=== PATIENT | female | born 1970 | race Caucasian/White ===

== ENCOUNTER 2018-06-20 09:38 | Emergency (ER) | payer SELFPAY ==
[2018-06-20 10:27] VITALS: BP 118/62
--- NOTE | 2018-06-20 11:40 | UC ---
UC General HPI - HPI Summary HPI Summary: L ear pain x 1 month and now has some drainage. - History of Current Complaint Chief Complaint: UCEar Stated Complaint: LT EAR PAIN, CONGESTION Time Seen by Provider: 06/20/18 11:32 Hx Obtained From: Patient Hx Last Menstrual Period: not in years due to anemia Onset/Duration: Gradual Onset Timing: Constant Pain Intensity: 5 Associated Signs & Symptoms: Negative: Fever, Headache - Allergy/Home Medications Allergies/Adverse Reactions: Allergies Allergy/AdvReac Type Severity Reaction Status Date / Time Penicillins AdvReac Vomiting Verified 06/20/18 10:24 PMH/Surg Hx/FS Hx/Imm Hx - Additional Past Medical History Additional PMH: chronic anemia - Surgical History Surgical History: Yes Surgery Procedure, Year, and Place: TUBAL - Family History Known Family History: Positive: Non-Contributory - Social History Occupation: Employed Full-time Alcohol Use: Occasionally Substance Use Type: None Smoking Status (MU): Heavy Every Day Tobacco Smoker Type: Cigarettes Amount Used/How Often: 1/2 ppd Length of Time of Smoking/Using Tobacco: 20 + yrs Have You Smoked in the Last Year: Yes - Immunization History Vaccination Up to Date: Yes Review of Systems All Other Systems Reviewed And Are Negative: Yes Constitutional: Positive: Fatigue Skin: Positive: Negative Eyes: Positive: Negative ENT: Positive: Ear Ache - L Respiratory: Positive: Negative Cardiovascular: Positive: Negative Gastrointestinal: Positive: Negative Genitourinary: Positive: Negative Motor: Positive: Negative Neurovascular: Positive: Negative Musculoskeletal: Positive: Negative Neurological: Positive: Negative Psychological: Positive: Negative Is Patient Immunocompromised?: No Physical Exam Triage Information Reviewed: Yes Appearance: Well-Appearing Vital Signs: Initial Vital Signs Temp 98.3 F 06/20/18 10:22 Pulse 68 06/20/18 10:22 Resp 16 06/20/18 10:22 BP 118/62 06/20/18 10:22 Pulse Ox 100 06/20/18 10:22 Vital Signs Reviewed: Yes Eyes: Positive: Conjunctiva Clear ENT: Positive: Pharynx normal, TMs normal - . R canal is clear. L canal with mild swelling and erythema. No auricular nodes or mastoid tenderness.. Negative : Nasal drainage Neck: Positive: Supple, Nontender, No Lymphadenopathy Respiratory: Positive: Lungs clear, Normal breath sounds Cardiovascular: Positive: RRR, No Murmur Abdomen Description: Positive: Nontender, No Organomegaly, Soft Bowel Sounds: Positive: Present Musculoskeletal: Positive: ROM Intact, No Edema Neurological: Positive: Alert Psychological: Positive: Age Appropriate Behavior Skin Exam: Other - Pale but warm and dry. Course/Dx - Course Course Of Treatment: L OE on exam. Hx of anemia d/w pt. pt states anemic for several years. Advised of her pale appearance on exam. Pt states always looks this way. Pt denies CP, JHA, Syncope, Weakness. Admits has not seen her pcp in 2 years. pt stongly encouraded to f/u PCP BHAVANA to reassess her anemia. Pt agrees , pcp is LAYLA. - Diagnoses Provider Diagnosis: Otitis externa Discharge - Sign-Out/Discharge Documenting (check all that apply): Patient Departure All imaging exams completed and their final reports reviewed: No Studies - Discharge Plan Condition: Stable Disposition: HOME Prescriptions: Neomyc/Polym/HC 1% OTIC SUSP* [Cortisporin Otic Susp 1%*] 4 drop LEFT EAR TID 7 Days #1 btl Patient Education Materials: Otitis Externa (DC) Referrals: LAYLA Dos Santos [Medical Doctor] - As Soon As Possible - Billing Disposition and Condition Condition: STABLE Disposition: Home
== END 2018-06-20 11:48 | disposition home or self-care (01) ==
LOC: UCCORT 09:38
DX: H60.92 Unspecified otitis externa, left ear (principal); Z88.0 Allergy status to penicillin; F17.210 Nicotine dependence, cigarettes, uncomplicated
CPT/HCPCS: 99212; G0463

== ENCOUNTER 2019-07-13 09:30 | Emergency (ER) | payer SELFPAY ==
[2019-07-13 10:06] VITALS: BP 124/75
--- NOTE | 2019-07-13 10:34 | UC ---
Throat Pain/Nasal Umer HPI - HPI Summary HPI Summary: Patient is a 49yo female presenting with nasal congestion and sinus pressure for "weeks" and L ear pain for the past few days. Patient states she thinks the congestion is also going to her chest. She notes sore throat from coughing. Cough nonproductive. Denies SOB and wheezing. Denies n/v. Denies fever and chills. States she "also wants to make sure she doesn't have an ear infection." Patient states she has taken dayquil for relief. - History of Current Complaint Chief Complaint: UCGeneralIllness Stated Complaint: SINUS AND EAR COMPLAINTS Hx Obtained From: Patient Hx Last Menstrual Period: not in years due to anemia Onset/Duration: Gradual Onset, Lasting Weeks Pain Intensity: 0 - Allergies/Home Medications Allergies/Adverse Reactions: Allergies Allergy/AdvReac Type Severity Reaction Status Date / Time Penicillins AdvReac Vomiting Verified 07/13/19 10:00 Home Medications: Home Medications D-Methorphan/PE/Acetaminophen [Daytime Cold-Flu Relief Sftgl] 2 tab PO ONCE [History Confirmed 07/13/19] PMH/Surg Hx/FS Hx/Imm Hx - Surgical History Surgical History: Yes Surgery Procedure, Year, and Place: tubal. gastric bypass - Family History Known Family History: Positive: Non-Contributory - Social History Alcohol Use: Occasionally Substance Use Type: None Smoking Status (MU): Heavy Every Day Tobacco Smoker Type: Cigarettes Amount Used/How Often: 1 ppd Length of Time of Smoking/Using Tobacco: 20 + yrs Have You Smoked in the Last Year: Yes - Immunization History Vaccination Up to Date: Yes Review of Systems All Other Systems Reviewed And Are Negative: Yes Constitutional: Positive: Negative. Negative: Fever, Chills ENT: Positive: Sore Throat - from coughing, Ear Ache - left, Nasal Discharge - PND, Sinus Congestion, Sinus Pain/Tenderness Respiratory: Positive: Cough - mild nonproductive. Negative: Shortness Of Breath Cardiovascular: Positive: Negative Gastrointestinal: Positive: Negative. Negative: Vomiting, Nausea Neurological: Positive: Negative Physical Exam Triage Information Reviewed: Yes Appearance: Well-Appearing, No Pain Distress, Well-Nourished Vital Signs: Initial Vital Signs Temp 97.8 F 07/13/19 10:01 Pulse 81 07/13/19 10:01 Resp 16 07/13/19 10:01 BP 124/75 07/13/19 10:01 Pulse Ox 97 07/13/19 10:01 Vital Signs Reviewed: Yes Eyes: Positive: Conjunctiva Clear ENT: Positive: Hearing grossly normal, Pharynx normal, Nasal congestion, Nasal drainage - PND noted, TMs normal - TMs intact with normal light reflex and landmarks b/l, Sinus tenderness - maxillary, Uvula midline. Negative: TM bulging, TM dull, TM red, Tonsillar swelling, Tonsillar exudate Neck exam: Normal Neck: Positive: Supple, Nontender, No Lymphadenopathy Respiratory Exam: Normal Respiratory: Positive: Lungs clear, Normal breath sounds, No respiratory distress Cardiovascular Exam: Normal Cardiovascular: Positive: RRR Neurological: Positive: Alert Psychological: Positive: Age Appropriate Behavior Skin Exam: Normal Throat Pain/Nasal Course/Dx - Course Course Of Treatment: Discussed sinusitis with patient and treated with Augmentin. She states she has taken Augmentin in the past without issues. Discussed no sign of ear infection. Instructed to follow up with pcp or [facility] if symptoms persist. Patient voiced understanding and agreed with treatment plan. - Differential Dx/Diagnosis Differential Diagnosis/HQI/PQRI: URI Provider Diagnosis: Acute rhinosinusitis Discharge ED - Sign-Out/Discharge Documenting (check all that apply): Patient Departure All imaging exams completed and their final reports reviewed: No Studies - Discharge Plan Condition: Stable Disposition: HOME Prescriptions: Amoxicillin/Clavulanate TAB* [Augmentin TAB 875*] 875 mg PO BID #14 tab Patient Education Materials: Rhinosinusitis (ED) Referrals: [facility] [Outside] - If Needed [facility] [Outside] - If Needed Additional Instructions: As discussed, take Augmentin as prescribed for the treatment of your bacterial sinusitis. You may use nasal saline spray or Flonase as directed for symptomatic relief. You may continue to take Dayquil as directed. Get plenty of rest and fluids. Follow up with your PCP or one of the referrals listed below if your symptoms do not resolve within 7 days. - Billing Disposition and Condition Condition: STABLE Disposition: Home
== END 2019-07-13 10:55 | disposition home or self-care (01) ==
LOC: UCCORT 09:30
DX: J01.90 Acute sinusitis, unspecified (principal); H92.02 Otalgia, left ear; F17.210 Nicotine dependence, cigarettes, uncomplicated; Z88.0 Allergy status to penicillin
CPT/HCPCS: 99212; G0463